=== PATIENT | male | born 1975 | race Caucasian/White ===

== ENCOUNTER 2019-04-04 16:41 | Emergency (ER) | payer OTHER, SELFPAY ==
--- NOTE | 2019-04-04 17:23 | RAD ---
Portable frontal chest radiograph: 04/04/2019 COMPARISON: None HISTORY: Trauma, pain FINDINGS: Lungs are clear. Heart and mediastinal contours appear within normal limits. IMPRESSION: No acute findings.
[2019-04-04] MEDS ORDERED: Ibuprofen 800 MG TAB ONE (17:53)
--- NOTE | 2019-04-04 18:12 | RAD ---
RIGHT SHOULDER RADIOGRAPHS THREE VIEWS: 04/04/2019 PROVIDED CLINICAL HISTORY: Shoulder pain, status post injury. FINDINGS: Evaluation is limited by patient body habitus. There is no evidence for fracture or other acute osse ous abnormality. If there is persistent clinical concern, conservative management and follow-up imag ing are advised. IMPRESSION: As above. POS: [facility]
== END 2019-04-04 18:14 | disposition home or self-care (01) ==
LOC: ERS 16:41
DX: S20.211A Contusion of right front wall of thorax, initial encounter (principal); M25.512 Pain in left shoulder; E11.40 Type 2 diabetes mellitus with diabetic neuropathy, unspecified; Z79.84 Long term (current) use of oral hypoglycemic drugs; Z79.899 Other long term (current) drug therapy; W22.8XXA Striking against or struck by other objects, initial encounter
CPT/HCPCS: 71045; 96360

== ENCOUNTER 2020-02-11 10:14 | Emergency (ER) | payer OTHER ==
[2020-02-11] MEDS ORDERED: Morphine 4 MG/ML VIAL ONE (10:32)
[2020-02-11] MEDS ORDERED: Ketorolac Tromethamine 30 MG/ML VIAL ONE (10:32)
[2020-02-11] MEDS ORDERED: Ondansetron PF 4 MG/2 ML Vial ONE ×2 (10:32→11:15)
[2020-02-11 10:58] LABS: #Basophils 0.1 thou/uL (0.0-0.2); #Eosinphils 0.5 thou/uL (0.0-0.7); #Lymphocytes 2.7 thou/uL (1.20-3.40); #Monocytes 0.7 thou/uL (0.11-0.59); #Neutrophils 10.5 thou/uL (1.40-6.50); %Basophils 0.4 % (0.0-1.0); %Eosinophils 3.3 % (0.0-10.0); %Lymphocytes 18.4 % (21.0-51.0); %Neutrophils 72.9 % (42.0-75.0); Hemoglobin 15.1 g/dL (14.0-18.0); Mean Corpuscular HGB CONC 32.4 g/dL (32.0-36.0); Mean Corpuscular Hemoglobin 28.6 pg (27.0-31.0); Mean Platelet Volume 8.5 fL (7.4-10.4); Platelet Count 389 thou/uL (130-400); RBC Distribution Width 11.5 % (11.5-14.5); Red Blood Cell (RBC) Count 5.28 mill/uL (4.70-6.10); White Blood Cell (WBC) Count 14.4 thou/uL (4.8-10.8)
[2020-02-11 11:09] LABS: Bilirubin Negative (Negative); Blood, Urine 2+ (Negative); Clarity Clear (Clear); Glucose, Urine (Dipstick) Normal (Negative); Leukocyte 250 Leu/uL (Negative); Mucous/LPF 1+ LPF (<2+); Nitrite Negative (Negative); Protein, Urine (Dipstick) 100 mg/dL (Neg-Trace); RBC/HPF 21-50 HPF (0-3); Squamous Epithelial None Seen HPF (0-3); Urobilinogen Normal mg/dL (Less than 2); WBC/HPF 21-50 HPF (0-3)
[2020-02-11] MEDS ORDERED: Metoclopramide HCl 10 MG/2 ML VIAL ONE (11:15)
[2020-02-11] MEDS ORDERED: Lidocaine 1% PF 5 ML VIAL ONE (11:15)
[2020-02-11] MEDS ORDERED: Rocuronium Bromide 10 MG/ML (10ML VIAL) ONE (11:15)
[2020-02-11] MEDS ORDERED: Succinylcholine Chloride 20 MG/ML 10 ml SYRINGE FS ONE (11:15)
[2020-02-11] MEDS ORDERED: PROPOFOL 200 MG/20 ML VIAL ONE (11:15)
[2020-02-11] MEDS ORDERED: Glycopyrrolate 0.2 MG/ML 5 ML SYRINGE ONE (11:15)
[2020-02-11 11:18] LABS: Bacteria/HPF 1+ HPF (None Seen)
[2020-02-11 11:20] LABS: ALT (SGPT) 28 U/L (8-55); AST (SGOT) 17 U/L (5-34); Albumin 5.2 g/dL (3.5-5.0); Alkaline Phosphatase 86 U/L (40-110); Anion Gap 17 mmol/L (10-20); BUN (Urea Nitrogen) 18 mg/dL (8.9-20.6); Bilirubin, Total 0.5 mg/dL (0.2-1.2); Calc. Creatinine Clearance 0 mL/min (70-130); Calcium 10.8 mg/dL (7.8-10.44); Carbon Dioxide 26 mmol/L (22-29); Chloride 102 mmol/L (98-107); Estimated GFR-MDRD 40; Globulin 3.8 g/dL (2.4-3.5); Glucose 148 mg/dL (70-105); Potassium 4.3 mmol/L (3.5-5.1); Sodium 141 mmol/L (136-145)
--- NOTE | 2020-02-11 11:31 | CT ---
CT ABDOMEN AND PELVIS PERFORMED WITHOUT CONTRAST ENHANCEMENT: HISTORY: Right flank pain x 3 days. FINDINGS: The lung bases are clear. There are diffuse fatty changes of the liver, it measures 19.7 cm in length. The spleen is within no rmal limits. Pancreas region and gallbladder appear unremarkable. Right and left adrenal glands are normal. Right and left kidneys are normal in size. There is a pun ctate lower pole left renal calculus. There is an approximately 4-5 mm lower pole right renal calcul us. A small exophytic hypodensity along the medial cortex of the right kidney most likely represents a cyst. There mild right-sided hydronephrosis and hydroureter, this is related to a calculus locate d at the right ureterovesical junction measuring 3-4 mm. This may actually represent 2 stones adjace nt to each other. No left ureteral calculi. No significant periaortic or mesenteric or pelvic adeno hamilton. Appendix is retrocecal and normal. IMPRESSION: 1. Bilateral renal calculi. 2. Mild right-sided hydronephrosis and hydroureter which is related to 1 and what appears 2 small 3- 4 mm right ureterovesical junction calculi. POS: [facility]
[2020-02-11] MEDS ORDERED: Sodium Chloride 0.9% 1,000 ML IV SCH (12:15)
[2020-02-11] MEDS ORDERED: cefTRIAXone\\ROCEPHIN 2 GM VIAL ONE (12:22)
[2020-02-11] MEDS ORDERED: Levofloxacin 500 mg/D5W 100 ml Premix Bag ONE (12:23)
--- NOTE | 2020-02-11 12:37 | RAD ---
Exam: Chest one view HISTORY:Chest radiograph. Renal calculi. Comparison: 04/04/2019 FINDINGS: Cardiac silhouette: Normal Aorta: Unremarkable Pulmonary vessels: Normal Costophrenic angles: Clear LUNGS: No masses or consolidation. Pneumothorax: None Osseous abnormalities: None IMPRESSION: No acute cardiopulmonary process.
[2020-02-11 12:49] LABS: INR-International Normal Ratio 0.9; PTT 30.4 SEC (22.9-36.1); Prothrombin Time 12.1 SEC (12.0-14.7)
[2020-02-11] MEDS ORDERED: Iothalamate Meglumine 60% 50 ML VIAL FS ONE (12:56)
[2020-02-11] MEDS ORDERED: Fentanyl 100 MCG/2 ML VIAL ONE (13:03)
--- NOTE | 2020-02-11 13:44 | RAD ---
Exam: Intraprocedure fluoroscopy for retrograde IVP FINDINGS: Single postoperative image demonstrates a right-sided double pigtail ureteral stent. IMPRESSION: Fluoroscopy as above
--- NOTE | 2020-02-11 13:56 | CON ---
DATE OF CONSULTATION: 02/11/2020 REASON FOR CONSULT: Right ureteral calculi, hydronephrosis. HISTORY OF PRESENT ILLNESS: Mr. Chawla is a pleasant 45-year-old male, followed by the [facility] with history of recurrent kidney stone. He denies prior surgical intervention. About a week ago, he did pass a 5-8 mm stone, however, did not have a specimen at home. Denies prior urologic assessment or surgical intervention. He has had intermittent nausea, however, denies history of fever, chills. Denies chest pain, shortness of breath. He routinely takes ibuprofen 600 mg every 6-8 hours due to chronic back pain, however, he has not taken this for about a week. He was seen in an urgent care setting about a week ago with similar complaints and discharged. He presents to the emergency room due to persistent discomfort, recurrent. He was provided Zofran, morphine, the pain did resolve, however, upon consultation, his pain is returning and has had some nausea with it. His urine has been tea- colored, however, denies passage of clots. Denies obstructive urinary symptoms. No antibiotics were provided by the emergency room, he does demonstrate renal insufficiency of creatinine 1.8, UA demonstrating 1+ bacteria. Culture has been sent by the ER staff. PAST MEDICAL HISTORY: L3-4 disk disease with chronic back pain, bilateral lower extremity neuropathy, plantar fasciitis, sciatic nerve damage, diabetes type 2. Gout SURGICAL HISTORY: None. PSYCHIATRIC: None. He is a vet. at bedside. SOCIAL HISTORY: Denies illicit drug use, alcohol, drug abuse. No tobacco abuse. Family history: Negative REVIEW OF SYSTEMS: A 10-point review of systems as above, otherwise noncontributory. PHYSICAL EXAMINATION: VITAL SIGNS: Blood pressure 153/128, 82, 20, 98.6. On arrival, his pain is rated 10, currently better, however, it is returning. GENERAL: He appears to be comfortable. However, pain is returning, somewhat writhing in discomfort. HEENT: Grossly unremarkable. HEART: Regular rate. LUNGS: Clear. ABDOMEN: Soft. No rigidity. No rebound. No gross CVA tenderness. : Demonstrates circumcised phallus. Meatus is grossly unremarkable. Testes descended with no evidence of intratesticular mass. EXTREMITIES: No cyanosis, clubbing, or edema. NEUROLOGIC: Sensation appears to be intact. No extremity weakness is appreciated. PSYCHIATRIC: Appears to be appropriate and intact. Skin: No rash lesions. PERTINENT LABORATORY DATA: White count 14, hemoglobin 15, platelet 389. There is no significant left shift or bandemia. Creatinine of 1.8. I do not have prior creatinine level. Per the patient, he states that his renal function has been "normal." Blood sugar 148, calcium of 10.8. Urinalysis, 100 protein 250 glucose, 20-50 rbc's and wbc's, no epithelials, 1+ bacteria, urine pH is 5.5. DIAGNOSTIC STUDIES: CT of the abdomen and pelvis without contrast which I reviewed myself: Mild right hydronephrosis, due to right distal ureteral calculi x2. There appears to be two stones just proximal to the UVJ measuring anywhere from 3 to 4 mm each. In the right kidney, there are two renal calculi, a right lower pole stone is about 3 mm, second right mid pole stone about 2-3 mm, left lower pole punctate calculi. IMPRESSION AND PLAN: 1. Mr. Chawla is a pleasant 45-year-old male, [facility] with history of recurrent kidney stone with spontaneous passage of stone, about a week ago. persistent recurrent discomfort. Presented with pain level of 10 2 Renal insufficiency, creatinine 1.8, baseline unknown. 3Hypercalcemia. 4. Current presentation due to persistent recurrent right lower quadrant abdominal discomfort secondary to two ureteral calculi x2 with mild hydronephrosis, given that he is a diabetic, renal insufficiency, intermittent nausea, with two distal stones and recent urgent care presentation, I do recommend intervention given his UA is positive for bacteria. He is provided broad-spectrum antibiotics with Rocephin and Levaquin. will follow urine culture. We discussed options of medical expulsion therapy versus ureteral stent, and ureteroscopy and laser lithotripsy at a later date 1 UTI treated and resolved. I do not recommend laser lithotripsy at this time as he presents with bacteria in the urine. He desires to proceed with ureteral stent placement. Options of observation also reviewed, he desires to proceed with surgical intervention as recommended. Expectations of ureteral stent causing dysuria, gross hematuria, intermittent flank pain discussed with him in detail. Job ID: [id number] [facility]
[2020-02-11] MEDS ORDERED: Phenazopyridine HCl 97.5 MG TABLET ONE ×2 (14:00→14:01)
[2020-02-11] MEDS ORDERED: Oxybutynin 5 MG TAB ONE (14:01)
--- NOTE | 2020-02-11 14:36 | OP ---
DATE OF PROCEDURE: 02/11/2020 PREOPERATIVE DIAGNOSES: 1. A 45-year-old male with history of recurrent kidney stones, prior history of spontaneous passage. 2. Right hydronephrosis, due to right distal ureteral calculi x2 measuring 3 mm each. 3. Bilateral renal calculi, right x2, 3 mm to 4 mm; , left lower pole punctate. POSTOPERATIVE DIAGNOSES: 1. A 45-year-old male with history of recurrent kidney stones, prior history of spontaneous passage. 2. Right hydronephrosis, due to right distal ureteral calculi x2 measuring 3 mm each. 3. Bilateral renal calculi, right x2, 3 mm to 4 mm , left lower pole punctate. PROCEDURES PERFORMED: Cystoscopy and right 6 x 28 double-J ureteral stent placement. ANESTHESIA: LMA. COMPLICATIONS: None apparent. DISPOSITION: To recovery room in stable condition. INTRAOPERATIVE FINDINGS: No evidence of urethral stricture. No significant BPH component. Bladder grossly unremarkable. Right stent placement performed uneventfully with sediments debris. INDICATIONS FOR PROCEDURE AND HISTORY: Mr. Chawla is a 45-year-old male, who presented to the emergency room due to right flank pain. He was found to have acute renal insufficiency of creatinine 1.8, positive UA 1+ bacteria. He has been provided broad-spectrum antibiotic therapy with ciprofloxacin and Rocephin, presents for cysto, right stent. I encouraged the patient to proceed with ureteral stent given his clinical findings. He desired to proceed. He has been fully informed that he will require elective ureteroscopy and laser lithotripsy at a later date. Risks and complications of the surgery including but not limited to bleeding pain infection, ureteral renal bladder injury, sepsis reviewed. Alternative the option including medical expulsion therapy reviewed DESCRIPTION OF PROCEDURE: After an informed consent was signed, the patient was taken to the operating room, placed in a dorsal lithotomy position with the genital area prepped and draped in the usual surgical sterile fashion. A 21-Maltese cystoscope was utilized for cystoscopy, which demonstrated normal anterior and posterior urethra. No significant obstructing lateral lobes of the prostate were noted. The bladder was grossly unremarkable for lesion or tumor. There was some sediment debris in the bladder, bilateral UOs are normal anatomical location. An open-ended catheter was utilized, I did not perform a retrograde pyelogram; however, passed the wire through the open-ended and intubated the right collecting system. Upon placing the right wire into the collecting system, we did have moderate amount of sediment debris. A 6 x 28 double-J ureteral stent was passed without difficulty. He tolerated the procedure well. He is discharged with ciprofloxacin 500 mg one p.o. b.i.d. for 10 days, Azo p.r.n., tramadol 50 mg #40 one to two p.o. q.6 hours p.r.n., Flomax 0.4 mg #30 one p.o. daily, and oxybutynin 10 mg one p.o. daily for bladder spasms. He will see me Thursday, to review final urine culture and schedule ureteroscopy laser lithotripsy at a later date when urine culture negative. He will follow up with me Thursday for close observation. Job ID: [id number] [facility]
[2020-02-12] MEDS ORDERED: cefTRIAXone\\ROCEPHIN 1 GM in Sodium Chloride 0.9% 100 ML IVPB SCH (12:00)
== END 2020-02-11 12:39 | disposition admitted as inpatient to this hospital (09) ==
LOC: ERS 10:14
DX: N13.2 Hydronephrosis with renal and ureteral calculous obstruction (principal); M10.9 Gout, unspecified; E11.40 Type 2 diabetes mellitus with diabetic neuropathy, unspecified; N39.0 Urinary tract infection, site not specified; Z79.84 Long term (current) use of oral hypoglycemic drugs; Z79.899 Other long term (current) drug therapy
CPT/HCPCS: 71045; 74176; 74420; 80053; 81003; 81015; 85025; 85610; 85730; 87086; 93005; 96361; 96374; 96375; C1758; C1769; J0696; J1885; J1956; J2001; J2270; J2405; J2704; J2765; J3010

== ENCOUNTER 2020-02-13 11:52 | Outpatient (CLI) | payer OTHER ==
[2020-02-13 14:07] LABS: Hemoglobin 13.9 g/dL (14.0-18.0); Mean Corpuscular HGB CONC 33.7 g/dL (32.0-36.0); Mean Corpuscular Hemoglobin 29.6 pg (27.0-31.0); Mean Corpuscular Volume 87.7 fL (78.0-98.0); Mean Platelet Volume 8.5 fL (7.4-10.4); Platelet Count 348 thou/uL (130-400); RBC Distribution Width 11.3 % (11.5-14.5); Red Blood Cell (RBC) Count 4.68 mill/uL (4.70-6.10); White Blood Cell (WBC) Count 9.9 thou/uL (4.8-10.8)
[2020-02-13 14:14] LABS: PTT 30.3 SEC (22.9-36.1); Prothrombin Time 12.8 SEC (12.0-14.7)
[2020-02-13 14:28] LABS: Anion Gap 17 mmol/L (10-20); BUN (Urea Nitrogen) 16 mg/dL (8.9-20.6); Calc. Creatinine Clearance 0 mL/min (70-130); Calcium 9.9 mg/dL (7.8-10.44); Carbon Dioxide 24 mmol/L (22-29); Chloride 104 mmol/L (98-107); Estimated GFR-MDRD 60; Glucose 97 mg/dL (70-105); Sodium 141 mmol/L (136-145)
--- NOTE | 2020-02-15 22:41 | EKG ---
Test Reason : Blood Pressure : / mmHG Vent. Rate : 089 BPM Atrial Rate : 089 BPM P-R Int : 148 ms QRS Dur : 090 ms QT Int : 352 ms P-R-T Axes : 035 060 -18 degrees QTc Int : 428 ms Sinus rhythm with marked sinus arrhythmia Cannot rule out Anterior infarct , age undetermined T wave abnormality, consider inferior ischemia Abnormal ECG No previous ECGs available Confirmed by Josh HEARD ([id number]) on 02/15/2020 10:41:09 PM Referred By: RENATO Confirmed By:Josh HEARD
== END 2020-02-13 11:53 | disposition home or self-care (01) ==
LOC: LABBT 11:52
PROVIDERS: ATTEND Urology
DX: Z01.818 Encounter for other preprocedural examination (principal); N20.2 Calculus of kidney with calculus of ureter; N39.0 Urinary tract infection, site not specified; E11.9 Type 2 diabetes mellitus without complications; M10.9 Gout, unspecified
CPT/HCPCS: 80048; 81001; 84550; 85027; 85610; 85730; 93005; 93010

== ENCOUNTER 2020-02-27 07:56 | Day surgery (SDC) | payer OTHER ==
[2020-02-13 12:25] VITALS: BMI 34.5
[2020-02-27] MEDS ORDERED: cefTRIAXone\\ROCEPHIN 2 GM VIAL ONE (08:38)
[2020-02-27] MEDS ORDERED: Sodium Chloride 0.9% 100 ML ONE (08:38)
--- NOTE | 2020-02-27 09:00 | RAD ---
SUPINE ABDOMEN: HISTORY: Preop. FINDINGS/IMPRESSION: There is a right double-pigtail ureteral stent noted. No urinary tract calcification identified. Chris wel gas pattern unremarkable. POS: [facility]
[2020-02-27] MEDS ORDERED: Rocuronium Bromide 10 MG/ML (10ML VIAL) ONE (09:08)
[2020-02-27] MEDS ORDERED: Ondansetron PF 4 MG/2 ML Vial ONE (09:08)
[2020-02-27] MEDS ORDERED: PROPOFOL 200 MG/20 ML VIAL ONE (09:08)
[2020-02-27] MEDS ORDERED: Dexamethasone 20 MG/5 ML VIAL ONE (09:08)
[2020-02-27] MEDS ORDERED: Succinylcholine Chloride 20 MG/ML 10 ml SYRINGE FS ONE (09:08)
[2020-02-27] MEDS ORDERED: Lidocaine 1% PF 5 ML VIAL ONE (09:08)
[2020-02-27] MEDS ORDERED: Glycopyrrolate 0.2 MG/ML 5 ML SYRINGE ONE (09:08)
[2020-02-27] MEDS ORDERED: Iothalamate Meglumine 60% 50 ML VIAL FS ONE (10:03)
[2020-02-27] MEDS ORDERED: Fentanyl 100 MCG/2 ML VIAL ONE (10:16)
[2020-02-27] MEDS ORDERED: Midazolam HCl 2 mg/2 ml Vial ONE (10:16)
[2020-02-27] MEDS ORDERED: Oxybutynin 5 MG TAB ONE (12:10)
[2020-02-27] MEDS ORDERED: Phenazopyridine HCl 97.5 MG TABLET ONE ×2 (12:10)
--- NOTE | 2020-02-27 12:14 | RAD ---
RETROGRADE PYELOGRMA: Two fluoroscopic images presented from the OR. INDICATION: Right ureteral stone. FINDINGS/IMPRESSION: The 1st images show a right double pigtail ureteral stent. The 2nd image shows wire into the right u pper collecting structures with partial opacification of the right collecting structures. POS: [facility]
--- NOTE | 2020-02-27 12:35 | OP ---
DATE OF PROCEDURE: 02/27/2020 PREOPERATIVE DIAGNOSES: 1. A 45-year-old male with history of recurrent kidney stone. 2. Bilateral nonobstructing renal calculi: Right lower pole x2, 3 mm and 4 mm; left punctate renal lithiasis. 3. Right ureterovesical junction stone x2, 3 to 4 mm. POSTOPERATIVE DIAGNOSES: 1. A 45-year-old male with history of recurrent kidney stone. 2. Bilateral nonobstructing renal calculi: Right lower pole x2, 3 mm and 4 mm; left punctate renal lithiasis. 3. Right ureterovesical junction stone x2, 3 to 4 mm. PROCEDURES PERFORMED: excision of left upper arm skin tag, cystoscopy, right retrograde pyelogram, ureteroscopy, pyeloscopy, laser lithotripsy of ureteral renal calculi, basket extraction of ureteral stone fragments, 6 x 28 double-J ureteral stent replacement with Dangler tape to penis, and stone extraction. ANESTHESIA: LMA. COMPLICATIONS: None apparent. DISPOSITION: To recovery room in stable condition. SPECIMENS: 1. Left upper arm skin tag. 2. Right ureteral calculi, stone fragments for chemical analysis. ESTIMATED BLOOD LOSS: None. INDICATIONS FOR THE PROCEDURE AND HISTORY: Mr. Chawla is a pleasant 45-year-old male who presented to the emergency room due to right flank pain. CT demonstrated right distal ureteral calculi x2, bilateral nonobstructing renal lithiasis. He also presents with large left upper arm skin tag, which he desires excision of removal concomitantly under anesthesia. We discussed risks and complications of the procedure in detail including, but not limited to, bleeding, pain, infection, injury to adjacent organs, urosepsis, ureteral renal kidney injury, possible secondary procedure. As he presented to the emergency room with flank pain, acute renal insufficiency, leukocytosis, he has been cleared by administration/ chief airport guide to proceed with his stone treatment. DESCRIPTION OF PROCEDURE: After an informed consent was signed, the patient was taken to the operating room, placed in a dorsal lithotomy position with the genital area prepped and draped in the usual surgical sterile fashion. A 21-Mozambican cystoscope was utilized for cystoscopy, which demonstrated bilobar coapting lateral lobes with no significant outlet obstruction from prostate component. The bladder was entered, which demonstrated punctate stone nidus within the bladder. The UOs were normal orthotopic position. There was some bullous edema of the right ureteral orifice consistent with a ureteral stent. The ureteral stent was removed to the level of the meatus and a 0.035 Sensor wire was placed into the right upper pole. The stent was then completely removed. A rigid ureteroscopy was performed, which we did find the stone in the intramural ureter. Using 275 micron laser fiber at 1.0 joules, we laser lithotripsied the stone. Subsequently, we extracted the stone uneventfully for complete extraction of his ureteral calculi, and this was sent for chemical analysis. At this time, with the ureteral stone cleared, a 10-Mozambican dual-lumen access sheath was passed over the existing safety wire 0.035 sensor, and a 10-Mozambican dual-lumen access sheath was passed to the level of the mid ureter. A second safety wire 0.035 Sensor wire was placed after retrograde pyelogram was performed confirming proper placement. At this time, an 11/13-Mozambican x 46 cm navigator was able to be passed without significant issues into the right proximal ureter. A flexible ureteroscope was then advanced over the working wire and subsequently the wire removed. Surveillance of the collecting system demonstrated multiple random plaques consistent with recurrent stone former. The stone was seen in the right lower pole, which was challenging to engage due to acute infundibular angle. Two stone nidus were seen consistent with the CT scan. We laser lithotripsied the stone, and fragmented into multiple dustlike debris. The stone RLP were imbedded in the calyx and this was rendered free. His second nidus stone was also laser lithotripsied in the lower pole, this demonstrated web-like infundibular scarring and we rendered this stone fragments free from the edges of the calyceal mucosa. At the end of the procedure, the stones were dustlike stone debris. We surveyed the collecting system and I did not see any further stone nidus of concern. The ureter was surveyed, which demonstrated no evidence of ureteral trauma, no ureteral stone calculi of concern. A 6 x 28 double-J ureteral stent was passed into the right upper pole and subsequently the safety wire was removed. The stent was left on Dangler tape to the patient's penis as there was endoscopic clearance of his ureteral calculi and minute stone fragments of the laser lithotripsy and fragments of the renal calculi. At this time, we paid our attention to his left upper arm skin tag. The skin tag was about 3 to 4 cm with a narrow vascular stalk. The stalk itself was only 3 mm thick. It had a narrow stalk and this was excised at the level of the skin flush and this was sent for permanent histologic evaluation. The bed of the skin tag removal was cauterized with electrocautery and dressing applied. He tolerated the procedure well. He was discharged with ciprofloxacin until followup appointment, oxybutynin 10 mg, #10; tramadol #30; Azo; and Flomax. He will follow up with me on next March 06 at 08:45 for stent pull on Terrancegler. Plan full metabolic panel at a later date after convalescence. Job ID: [id number] [facility]
== END 2020-02-27 13:17 | disposition home or self-care (01) ==
LOC: SDC 07:56
PROVIDERS: ATTEND Urology
PROC: 0HBCXZZ Excision of Left Upper Arm Skin, External Approach (ICD-10-PCS; principal; 2020-02-27)
PROC: 0T768DZ Dilation of Right Ureter with Intraluminal Device, Via Natural or Artificial Opening Endoscopic (ICD-10-PCS; principal; 2020-02-27)
PROC: 0TC38ZZ Extirpation of Matter from Right Kidney Pelvis, Via Natural or Artificial Opening Endoscopic (ICD-10-PCS; principal; 2020-02-27)
PROC: 0TC68ZZ Extirpation of Matter from Right Ureter, Via Natural or Artificial Opening Endoscopic (ICD-10-PCS; principal; 2020-02-27)
DX: N20.2 Calculus of kidney with calculus of ureter (principal); L91.8 Other hypertrophic disorders of the skin; M10.9 Gout, unspecified; E11.9 Type 2 diabetes mellitus without complications; E78.5 Hyperlipidemia, unspecified; M51.9 Unspecified thoracic, thoracolumbar and lumbosacral intervertebral disc disorder; G89.29 Other chronic pain; M54.9 Dorsalgia, unspecified; Z79.84 Long term (current) use of oral hypoglycemic drugs; Z79.899 Other long term (current) drug therapy; Z91.048 Other nonmedicinal substance allergy status
CPT/HCPCS: 74018; 74420; 82365; 88300; 88304; C1758; C1769; J0696; J1100; J2001; J2250; J2405; J2704; J3010; J3490

== ENCOUNTER 2020-06-25 09:45 | Emergency (ER) | payer OTHER ==
[2020-06-25] MEDS ORDERED: Fluorescein Opthalmic Strip ONE (12:05)
[2020-06-25] MEDS ORDERED: Proparacaine 0.5% Opth 15 ML BOT ONE (12:05)
[2020-06-25] MEDS ORDERED: Tobramycin Sulfate 0.3% Ophth Susp 5 ml Bottle ONE (12:52)
== END 2020-06-25 13:00 | disposition home or self-care (01) ==
LOC: ERS 09:45
DX: S05.02XA Injury of conjunctiva and corneal abrasion without foreign body, left eye, initial encounter (principal); G62.9 Polyneuropathy, unspecified; M10.9 Gout, unspecified; E11.9 Type 2 diabetes mellitus without complications; M72.2 Plantar fascial fibromatosis; Z79.84 Long term (current) use of oral hypoglycemic drugs; Z79.899 Other long term (current) drug therapy; W22.8XXA Striking against or struck by other objects, initial encounter
CPT/HCPCS: 99283

== ENCOUNTER 2022-09-21 21:47 | Emergency (ER) | payer OTHER | END 2022-09-22 01:10 | disposition home or self-care (01) | LOC: ERS 21:47 | DX: S01.352A Open bite of left ear, initial encounter (principal); E11.9 Type 2 diabetes mellitus without complications; W54.0XXA Bitten by dog, initial encounter | CPT/HCPCS: 99283 ==

== ENCOUNTER 2023-02-04 09:17 | Outpatient (CLI) | payer OTHER | END 2023-02-04 09:18 | disposition home or self-care (01) | LOC: BICCT 09:17 | PROVIDERS: ATTEND Anesthesiology Pain Medicine | DX: M51.26 Other intervertebral disc displacement, lumbar region (principal); M51.27 Other intervertebral disc displacement, lumbosacral region; Q05.7 Lumbar spina bifida without hydrocephalus | CPT/HCPCS: 72131 ==

== ENCOUNTER 2023-03-27 09:03 | Outpatient (CLI) | payer OTHER ==
[2023-03-27 10:23] LABS: Hemoglobin 15.1 g/dL (13.5-17.5); Mean Corpuscular HGB CONC 33.7 g/dL (32.0-36.0); Mean Corpuscular Hemoglobin 31.5 pg (27.0-33.0); Mean Corpuscular Volume 93.3 fl (81.2-95.1); Mean Platelet Volume 11.7 fl (7.4-10.4); Platelet Count 219 10x3/uL (150-450); RBC Distribution Width 12.9 % (11.5-14.5); White Blood Cell (WBC) Count 7.7 10x3/uL (3.5-10.5)
[2023-03-27 10:42] LABS: Anion Gap 15 mmol/L (10-20); BUN (Urea Nitrogen) 17 mg/dL (8.9-20.6); Calc. Creatinine Clearance 0 mL/min (70-130); Calcium 9.9 mg/dL (7.8-10.44); Carbon Dioxide 23 mmol/L (22-29); Chloride 107 mmol/L (98-107); Estimated GFR 75; Glucose 122 mg/dL (70-105); Potassium 4.4 mmol/L (3.5-5.1); Sodium 141 mmol/L (136-145)
== END 2023-03-27 09:04 | disposition home or self-care (01) ==
LOC: LABBT 09:03
PROVIDERS: ATTEND Neurological Surgery
DX: Z01.818 Encounter for other preprocedural examination (principal); M54.16 Radiculopathy, lumbar region
CPT/HCPCS: 80048; 85027; 93005; 93010

== ENCOUNTER 2023-03-30 06:42 | Day surgery (SDC) | payer OTHER ==
[2023-03-27 09:36] VITALS: BMI 34.8
[2023-03-30] MEDS ORDERED: Vancomycin 1 GM VIAL ONE (09:03)
[2023-03-30] MEDS ORDERED: Sodium Chloride 0.9% 100 ML ONE (09:13)
[2023-03-30] MEDS ORDERED: CEFAZOLIN 2 GM VIAL ONE (09:13)
[2023-03-30] MEDS ORDERED: Fentanyl 250 MCG/5 ML VIAL ONE (09:16)
[2023-03-30] MEDS ORDERED: Dexamethasone 20 MG/5 ML VIAL ONE (09:26)
[2023-03-30] MEDS ORDERED: PHENYLEPHRINE-NS 100 MCG/ML 10 ML SYRINGE ONE (09:26)
[2023-03-30] MEDS ORDERED: Lidocaine 1% PF 5 ML VIAL ONE (09:26)
[2023-03-30] MEDS ORDERED: Rocuronium Bromide 10 MG/ML (10ML VIAL) ONE (09:26)
[2023-03-30] MEDS ORDERED: Glycopyrrolate 0.2 MG/ML 5 ML SYRINGE ONE (09:26)
[2023-03-30] MEDS ORDERED: Ketorolac Tromethamine 30 MG/ML VIAL ONE (09:26)
[2023-03-30] MEDS ORDERED: PROPOFOL 200 MG/20 ML VIAL ONE (09:26)
[2023-03-30] MEDS ORDERED: NEOSTIGMINE 3 MG/3 ML SYR 3 MG/3 ML SYRINGE ONE (09:26)
[2023-03-30] MEDS ORDERED: Ondansetron PF 4 MG/2 ML Vial ONE (09:26)
[2023-03-30] MEDS ORDERED: fentaNYL PF 100 MCG/2 ML SYRINGE ONE (11:15)
[2023-03-30] MEDS ORDERED: Cyclobenzaprine 10 MG TAB ONE (12:25)
== END 2023-03-30 13:12 | disposition home or self-care (01) ==
LOC: SDC 06:42
PROVIDERS: ATTEND Neurological Surgery
PROC: 0SG30AJ Fusion of Lumbosacral Joint with Interbody Fusion Device, Posterior Approach, Anterior Column, Open Approach (ICD-10-PCS; principal; 2023-03-30)
DX: M51.37 Other intervertebral disc degeneration, lumbosacral region (principal); M54.16 Radiculopathy, lumbar region; E11.9 Type 2 diabetes mellitus without complications; I10 Essential (primary) hypertension; G89.29 Other chronic pain; Z79.84 Long term (current) use of oral hypoglycemic drugs; Z79.899 Other long term (current) drug therapy; Z91.048 Other nonmedicinal substance allergy status
CPT/HCPCS: C1713; C1768; C1776; C1889; J1100; J1885; J2405; J2704; J3010; J3370; J3490

== ENCOUNTER 2023-08-11 13:43 | Outpatient (CLI) | payer OTHER ==
[2023-08-11 14:43] LABS: Hematocrit 48.4 % (38.8-50.0); Hemoglobin 16.6 g/dL (13.5-17.5); Mean Corpuscular HGB CONC 34.3 g/dL (32.0-36.0); Mean Corpuscular Hemoglobin 31.2 pg (27.0-33.0); Mean Platelet Volume 11.5 fl (7.4-10.4); Platelet Count 209 10x3/uL (150-450); RBC Distribution Width 13.3 % (11.5-14.5); Red Blood Cell (RBC) Count 5.32 10x6/uL (4.32-5.72); White Blood Cell (WBC) Count 7.4 10x3/uL (3.5-10.5)
[2023-08-11 15:12] LABS: Anion Gap 18 mmol/L (10-20); BUN (Urea Nitrogen) 15 mg/dL (8.9-20.6); Calc. Creatinine Clearance 0 mL/min (70-130); Calcium 9.1 mg/dL (7.8-10.44); Carbon Dioxide 19 mmol/L (22-29); Chloride 104 mmol/L (98-107); Estimated GFR 73; Glucose 191 mg/dL (70-105); Potassium 4.1 mmol/L (3.5-5.1); Sodium 137 mmol/L (136-145)
== END 2023-08-11 13:44 | disposition home or self-care (01) ==
LOC: LABBT 13:43
PROVIDERS: ATTEND Neurological Surgery
DX: Z01.818 Encounter for other preprocedural examination (principal); M54.16 Radiculopathy, lumbar region
CPT/HCPCS: 80048; 85027; 93005; 93010

== ENCOUNTER 2023-10-19 10:26 | Emergency (ER) | payer OTHER ==
[2023-10-19] MEDS ORDERED: Morphine 4 MG/ML VIAL ONE (12:14)
[2023-10-19] MEDS ORDERED: predniSONE 20 MG TAB ONE (12:14)
[2023-10-19] MEDS ORDERED: Ketorolac Tromethamine 30 MG/ML VIAL ONE (12:14)
== END 2023-10-19 13:18 | disposition home or self-care (01) ==
LOC: ERS 10:26
DX: M54.50 Low back pain, unspecified (principal); E11.9 Type 2 diabetes mellitus without complications
CPT/HCPCS: 72131; 96372; J1885; J2270; J7512